=== PATIENT | male | born 1990 | race African-American/Black ===

== ENCOUNTER 2018-06-14 20:44 | Inpatient (IN) ==
--- NOTE | 2018-06-14 21:15 | ED ---
HPI General Chief Complaint: Psychiatric Symptoms Stated Complaint: Psych Eval/ OBPD Time Seen by Provider: 06/14/18 21:10 Source: patient and police Mode of arrival: ambulatory Limitations: no limitations History of Present Illness HPI Narrative: This is a 28-year-old black male who presents emergency department under Em act by PD. Patient states that he is suffered from depression for quite some time. He has never sought medical attention. Today he had placed a belt around his neck in a suicide attempt. He states that he attempted multiple times to asphyxiate himself. His last attempt he stated that he either passed out or fell asleep and when he woke up the belt was still around his neck. His mother who which she lives with called police. The patient states that when he is not active he becomes down and depressed. He recently moved back to the area in March. He has a child with his baby antonio but they are . He has a girlfriend currently. He does not smoke. Patient does drink alcohol on occasion. He does smoke marijuana on occasion. He denies any acute medical complaints. He denies any neck pain. No numbness, tingling or weakness. No visual changes or headache. No nausea or vomiting. He denies any ingestions. No homicidal ideation. Related Data Home Medications Medication Instructions Recorded Confirmed No Known Home Medications 06/14/18 06/14/18 Allergies Allergy/AdvReac Type Severity Reaction Status Date / Time No Allergy Information Allergy Unverified 06/14/18 21:11 Available Review of Systems ROS: all other systems reviewed are negative PMFSH History History Provided By: Patient Social History Social History Recent Travel in [facility] within the Last 8 Weeks: Yes Recent Out of Country Travel within the Last 8 Weeks: No Exam Narrative Exam Narrative: GENERAL: Well-nourished, well-developed patient. SKIN: Warm and dry. HEAD: Normocephalic and atraumatic. EYES: No scleral icterus. No injection or drainage. ENT: No nasal drainage noted. Mucous membranes pink. Airway patent. NECK: Supple, trachea midline. Moves head freely without obvious discomfort. I see no ligature jenkins. CARDIOVASCULAR: Regular rate and rhythm without murmurs, gallops, or rubs. RESPIRATORY: Breath sounds equal bilaterally. No accessory muscle use. GASTROINTESTINAL: Abdomen soft, non-tender, nondistended. EXTREMITIES: No cyanosis or edema. BACK: Nontender without obvious deformity. No CVA tenderness. NEURO: Patient is alert and oriented. no sensorimotor deficits. Nonfocal. Normal speech. PSYCH: No delusions. No auditory or visual hallucinations. Course Initial Documented Vital Signs Temperature 99 F 06/14/18 21:05 Pulse Rate 113 H 06/14/18 21:05 Respiratory Rate 14 06/14/18 21:05 Blood Pressure 128/78 06/14/18 21:05 Pulse Oximetry 100 06/14/18 21:05 Last Documented Vital Signs Temperature 99 F 06/14/18 21:05 Pulse Rate 113 H 06/14/18 21:05 Respiratory Rate 14 06/14/18 21:05 Blood Pressure 128/78 06/14/18 21:05 Pulse Oximetry 100 06/14/18 21:05 Medical Decision Making MDM Narrative Medical decision making narrative: We will perform routine laboratory testing for medical clearance Medical Screen Exam Complete: Yes Emergency Medical Condition: Yes Differential Diagnosis Differential Diagnosis: MDM: High Differential diagnoses: Schizophrenia, schizoaffective disorder, bipolar, anxiety, depression, adjustment reaction, mood disorder NOS, ODD, depressive disorder NOS, psychosis NOS, substance induced mood disorder, infection, electrolyte abnormality, malingering. Mental health screening discussed with the patient. Psychiatric screen ordered. Lab Data Result diagrams: 06/14/18 21:09 06/14/18 21:09 Lab Results 06/14/18 06/14/18 06/14/18 Range/Units 21:09 21:09 21:09 WBC 5.3 (4.0-11.0) th/mm3 RBC 4.61 (4.50-5.90) mil/mm3 Hgb 14.7 (13.0-17.0) gm/dL Hct 44.0 (39.0-51.0) % MCV 95.4 (80.0-100.0) fL MCH 31.9 (27.0-34.0) pg MCHC 33.5 (32.0-36.0) % RDW 13.0 (11.6-17.2) % Plt Count 158 (150-450) th/mm3 MPV 8.4 (7.0-11.0) fL Neut % (Auto) 70.8 H (16.0-70.0) % Lymph % (Auto) 19.6 (9.0-44.0) % [place]elope % (Auto) 6.4 (0.0-8.0) % Eos % (Auto) 2.6 (0.0-4.0) % Baso % (Auto) 0.6 (0.0-2.0) % Neut # (Auto) 3.8 (1.8-7.7) th/mm3 Lymph # (Auto) 1.0 (1.0-4.8) th/mm3 [place]elope # (Auto) 0.3 (0.0-0.9) th/mm3 Eos # (Auto) 0.1 (0.0-0.4) th/mm3 Baso # (Auto) 0.0 (0.0-0.2) th/mm3 WBC Differential . Differential Comment Auto diff final Sodium 138 (136-145) meq/L Potassium 3.4 L (3.5-5.1) meq/L Chloride 103 (98-107) meq/L Carbon Dioxide 26.4 (21.0-32.0) meq/L Anion Gap 9 (5-15) meq/L BUN 10 (7-18) mg/dL Creatinine 1.07 (0.60-1.30) mg/dL Estimated GFR Greater than 89 (>89) mL/min Random Glucose 93 (74-106) mg/dL Calcium 9.2 (8.5-10.1) mg/dL Magnesium 1.8 (1.5-2.5) mg/dL Total Bilirubin 1.0 (0.2-1.0) mg/dL AST 20 (15-37) U/L ALT 36 (12-78) U/L Alkaline Phosphatase 49 (45-117) U/L Total Protein 7.7 (6.4-8.2) g/dL Albumin 4.7 (3.4-5.0) g/dL TSH 0.825 (0.358-3.740) uIU/mL Salicylates 2.2 L (2.8-20.0) mg/dL Urine Opiates Screen (Neg) Acetaminophen Less than 2.0 L (10.0-30.0) mcg/mL Ur Barbiturates Screen (Neg) Ur Amphetamines Screen (Neg) U Benzodiazepines Scrn (Neg) Urine Cocaine Screen (Neg) U Cannabinoids Screen (Neg) Serum Alcohol Less than 3 (0-5) mg/dL 06/14/18 Range/Units 21:09 WBC (4.0-11.0) th/mm3 RBC (4.50-5.90) mil/mm3 Hgb (13.0-17.0) gm/dL Hct (39.0-51.0) % MCV (80.0-100.0) fL MCH (27.0-34.0) pg MCHC (32.0-36.0) % RDW (11.6-17.2) % Plt Count (150-450) th/mm3 MPV (7.0-11.0) fL Neut % (Auto) (16.0-70.0) % Lymph % (Auto) (9.0-44.0) % [place]elope % (Auto) (0.0-8.0) % Eos % (Auto) (0.0-4.0) % Baso % (Auto) (0.0-2.0) % Neut # (Auto) (1.8-7.7) th/mm3 Lymph # (Auto) (1.0-4.8) th/mm3 [place] # (Auto) (0.0-0.9) th/mm3 Eos # (Auto) (0.0-0.4) th/mm3 Baso # (Auto) (0.0-0.2) th/mm3 WBC Differential Differential Comment Sodium (136-145) meq/L Potassium (3.5-5.1) meq/L Chloride (98-107) meq/L Carbon Dioxide (21.0-32.0) meq/L Anion Gap (5-15) meq/L BUN (7-18) mg/dL Creatinine (0.60-1.30) mg/dL Estimated GFR (>89) mL/min Random Glucose (74-106) mg/dL Calcium (8.5-10.1) mg/dL Magnesium (1.5-2.5) mg/dL Total Bilirubin (0.2-1.0) mg/dL AST (15-37) U/L ALT (12-78) U/L Alkaline Phosphatase (45-117) U/L Total Protein (6.4-8.2) g/dL Albumin (3.4-5.0) g/dL TSH (0.358-3.740) uIU/mL Salicylates (2.8-20.0) mg/dL Urine Opiates Screen Neg (Neg) Acetaminophen (10.0-30.0) mcg/mL Ur Barbiturates Screen Neg (Neg) Ur Amphetamines Screen Neg (Neg) U Benzodiazepines Scrn Neg (Neg) Urine Cocaine Screen Neg (Neg) U Cannabinoids Screen Pos H (Neg) Serum Alcohol (0-5) mg/dL Discharge Plan Discharge Disposition Patient Disposition: 30 Still Patient Discharge Condition Condition: Stable Physicians Team ED Provider: Ap Valentin ED Midlevel Provider: Tonny Sloan Primary Care Provider: Primary Care SofíaiHanh Rxs /Orders / Referrals /Forms Prescriptions: No Action No Known Home Medications RF: 0 Status ED Status: Medically Cleared
[2018-06-14 21:57] LABS: Amphetamine Screen,Urine Neg (Neg); Barbiturate Screen,Urine Neg (Neg); Cannabinoid Screen,Urine Pos (Neg); Cocaine Screen,Urine Neg (Neg)
[2018-06-14 21:59] LABS: Baso % (Auto) 0.6 % (0.0-2.0); Eos # (Auto) 0.1 th/mm3 (0.0-0.4); Eos % (Auto) 2.6 % (0.0-4.0); Hemoglobin 14.7 gm/dL (13.0-17.0); Lymph % (Auto) 19.6 % (9.0-44.0); Mean Corpuscular HGB Conc 33.5 % (32.0-36.0); Mean Corpuscular Hemoglobin 31.9 pg (27.0-34.0); Mean Corpuscular Volume 95.4 fL (80.0-100.0); Mean Platelet Volume 8.4 fL (7.0-11.0); Mono # (Auto) 0.3 th/mm3 (0.0-0.9); Mono % (Auto) 6.4 % (0.0-8.0); Neut # (Auto) 3.8 th/mm3 (1.8-7.7); Neut % (Auto) 70.8 % (16.0-70.0); Platelet Count 158 th/mm3 (150-450); Red Blood Count 4.61 mil/mm3 (4.50-5.90); White Blood Count 5.3 th/mm3 (4.0-11.0)
[2018-06-14 22:05] LABS: Anion Gap 9 meq/L (5-15)
[2018-06-14 22:09] LABS: Opiate Screen,Urine Neg (Neg)
[2018-06-14 22:16] LABS: Alanine Aminotransferase 36 U/L (12-78); Albumin 4.7 g/dL (3.4-5.0); Alkaline Phosphatase 49 U/L (45-117); Aspartate Aminotransferase 20 U/L (15-37); Blood Urea Nitrogen 10 mg/dL (7-18); Calcium 9.2 mg/dL (8.5-10.1); Carbon Dioxide 26.4 meq/L (21.0-32.0); Chloride 103 meq/L (98-107); Glomerular Filtration Rate Greater Than 89 mL/min (>89); Glucose,Random 93 mg/dL (74-106); Magnesium 1.8 mg/dL (1.5-2.5); Potassium 3.4 meq/L (3.5-5.1); Sodium 138 meq/L (136-145); Thyroid Stimulating Hormone 0.825 uIU/mL (0.358-3.740); Total Protein 7.7 g/dL (6.4-8.2)
[2018-06-15] MEDS ORDERED: Bisacodyl 10 MG Supp RECTAL PRN (09:47)
[2018-06-15] MEDS ORDERED: Acetaminophen 325 MG Tablet PO PRN (09:47)
[2018-06-15] MEDS ORDERED: LORazepam 1 MG Tablet PO PRN (09:47)
[2018-06-15] MEDS ORDERED: Aluminum/Magnesium/Simethacone Susp 30 ML UDC PO PRN (09:47)
[2018-06-15] MEDS ORDERED: Senna/Docusate Sodium 8.6/50 MG Tablet PO PRN (09:47)
--- NOTE | 2018-06-15 10:30 | P.HPPSY ---
Provisional Diagnosis Admission Date: June 14, 2018 20:44 [place] I.: Unspecified depressive disorder, rule out bipolar disorder, rule out major depressive disorder Competence Certification of Person's Competence To Provide Express and Informed Consent I have personally examined Cristofer Vazquez JR, a person being served at [facility] on, June 15, 2018 0953. Express and informed consent means consent voluntarily given in writing, by a competent person, after sufficient explanation and disclosure of the subject matter involved to enable the person to make a knowing and willful decision without any element of force, fraud, deceit, duress, or other form of constraint or coercion. This person is 18 years of age or older, is not now known to be incompetent to consent to treatment with a guardian advocate, and does not have a health care surrogate or proxy currently making medical treatment decisions. I have found this person to be one of the following: [xxx] Competent to provide express and informed consent, as defined above, for voluntary admission to this facility and is competent to provide express and informed consent for treatment. He/she has the consistent capacity to make well reasoned, willful, and knowing decisions concerning his or her medical or mental health treatment. The person fully and consistently understands the purpose of the admission for examination/placement and is fully capable of personally exercising all rights assured [place] Incompetent to provide express and informed consent to voluntary admission, and this is incompetent to provide express and informed consent to treatment. The person must be transferred to involuntary status and a petition for a guardian advocate filed with the Circuit Court. [] Refusing to provide express and informed consent to voluntary admission but is competent to provide express and informed consent for treatment. The person must be discharged or transferred to involuntary status. Form shall be completed within 24 hours of a person's arrival at the receiving facility and filed in the clinical record of each person: 1. Admitted on a voluntary basis 2. Permitted to provide express and informed consent to his/her own treatment 3. Allowed to transfer from involuntary to voluntary status 4. Prior to permitting a person to consent to his or her own treatment after having been previously found incompetent to consent to treatment. History of Present Illness Capacity: Has capacity History of Present Illness: Patient is a 28-year-old -[place]aroese man, single, domiciled with mother, has 1 son, unemployed, with no formal past psychiatric history, no previous psychiatric diagnoses, no previous hospitalization, one previous suicide attempt in 2014 via overdose, no history of self-injurious behavior, with a substance use history for daily marijuana use, no past medical history, who was brought under [employer] act as a patient attempted suicide at via tying a belt around his neck in the context of worsening depression which patient was admitted to the inpatient psychiatry unit for further evaluation and management. Patient was found lying hospital bed noted B, cooperative, seen with nurse. Patient states that he has been having difficulty with sleep for the past couple of weeks, but also noted that he would have episodes of several days where he felt he did not need to sleep, reporting decreased appetite, with inconsistent energy concentration as well but also noticing having felt depressed for the past 2 weeks along with feeling helpless and hopeless. Patient also states having occasional episode of racing thoughts at times and recently having suicide ideation for the past few days. Patient reports having had suicidal ideation for many years but that his coping skills would usually help but recently have not been effective. He states that his stresses include overworking trying to find work, stating that his coping skills are no longer effective. He states that yesterday he had been mostly in bed and attempting to speak with family for support due to his depressed mood but confessed to his mother that he tried twice to tie a belt around his neck to end his life which mother had called EMS and patient was brought to the hospital for evaluation under [employer]ig[employer] act. Patient currently states he is feeling "better" but continues to have depressed mood well denying any suicide ideation at this time is unreliable to contract for safety. Patient denies any perceptional services, no delusional material elicited. Rest of psychiatric review of systems negative. Family psychiatric history: Mother with anxiety, no suicides in the family Past psychiatric history: No formal past psychiatric diagnoses, no previous psychiatric admissions, one previous suicide attempt 2014 via overdose, no history of self-injurious behavior, no history of abuse. Substance history: ETOH use "occasionally", once per month usually 1-2 drinks at a time, THC use daily, denies use of any other drugs. Past medical history: Denies Allergies: NKDA Social history: Single, domiciled with mother, has 1 son, unemployed, no legal history, no background, no access to firearms. Review of Systems All other systems reviewed negative except as stated in HPI PMFSH - History History Provided By: Patient - Medical History Medical History: Medical History (Last Updated 06/15/18 @ 04:48 by Katina Swanson RN) Patient denies medical problems - Surgical History Surgical History: Surgical History (Last Updated 06/15/18 @ 04:50 by Katina Swanson RN) No history of previous surgery - Tobacco History Second Hand Smoke Exposure: No Smoking Status: Never smoker - Alcohol History How Often Do You Have a Drink Containing Alcohol: 2 to 4 times a month - Substance Use History Substance History: Active Abuse - Substance Use Type Marijuana Status: Active Route Used: Inhalation Reason for Use: Get High - Travel History Recent Travel in the [place] Within the Last 8 Weeks: Yes Recent Travel Out of the Country Within the Last 8 Weeks: No - Immunization History Tetanus Immunization: >5 Years Quality Measures - Psychiatric History Psychological trauma history: denies Violence risk to others in the last 6 months: low Violence risk to self in the last 6 months: elevated due to recent suicide attempt - Substance Abuse History Drug or alcohol use in the past 12 months: see HPI - Patient Strengths Patient's strengths (minimum of 2): verbal and communicative Medications and Allergies Active Medications: Active Medications Acetaminophen (Tylenol) 650 mg PO Q4H PRN PRN Reason: Pain 1-5 or Temp >101F Al Hydrox/Mg Hydrox/Simethicone (Mag-Al Plus Susp Liq) 30 ml PO Q6H PRN PRN Reason: DYSPEPSIA Al Hydroxide/Mg Hydroxide (Milk Of Magnesia Liq) 30 ml PO Q12H PRN PRN Reason: Mild Constipation Bisacodyl (Dulcolax Supp) 10 mg RECTAL DAILY PRN PRN Reason: SEVERE CONSITIPATION Diphenhydramine HCl (Benadryl) 50 mg PO HS PRN PRN Reason: INSOMNIA Lactulose (Lactulose Liq) 30 ml PO DAILY PRN PRN Reason: SEVERE CONSITIPATION Lorazepam (Ativan) 1 mg PO Q6H PRN PRN Reason: MODERATE TO SEVERE ANXIETY Quetiapine Fumarate (Seroquel) 25 mg PO BID ARSLAN Senna/Docusate Sodium (Valentine-Colace) 1 tab PO BID PRN PRN Reason: CONSTIPATION Sennosides (Senokot) 17.2 mg PO Q12H PRN PRN Reason: Moderate Constipation Allergies Allergy/AdvReac Type Severity Reaction Status Date / Time No Allergy Information Allergy Unverified 06/14/18 21:11 Available Home Medications Medication Instructions Recorded Confirmed Type No Known Home Medications 06/14/18 06/14/18 History Results - Labs CBC & Chem 7: 06/14/18 21:09 06/14/18 21:09 Labs: Laboratory Results - last 24 hr 06/14/18 06/14/18 06/14/18 21:09 21:09 21:09 WBC 5.3 RBC 4.61 Hgb 14.7 Hct 44.0 MCV 95.4 MCH 31.9 MCHC 33.5 RDW 13.0 Plt Count 158 MPV 8.4 Neut % (Auto) 70.8 H Lymph % (Auto) 19.6 [place] % (Auto) 6.4 Eos % (Auto) 2.6 Baso % (Auto) 0.6 Neut # (Auto) 3.8 Lymph # (Auto) 1.0 [place] # (Auto) 0.3 Eos # (Auto) 0.1 Baso # (Auto) 0.0 WBC Differential . Differential Comment Auto diff final Sodium 138 Potassium 3.4 L Chloride 103 Carbon Dioxide 26.4 Anion Gap 9 BUN 10 Creatinine 1.07 Estimated GFR Greater than 89 Random Glucose 93 Calcium 9.2 Magnesium 1.8 Total Bilirubin 1.0 AST 20 ALT 36 Alkaline Phosphatase 49 Total Protein 7.7 Albumin 4.7 TSH 0.825 Salicylates 2.2 L Urine Opiates Screen Acetaminophen Less than 2.0 L Ur Barbiturates Screen Ur Amphetamines Screen U Benzodiazepines Scrn Urine Cocaine Screen U Cannabinoids Screen Serum Alcohol Less than 3 06/14/18 21:09 WBC RBC Hgb Hct MCV MCH MCHC RDW Plt Count MPV Neut % (Auto) Lymph % (Auto) [place] % (Auto) Eos % (Auto) Baso % (Auto) Neut # (Auto) Lymph # (Auto) [place] # (Auto) Eos # (Auto) Baso # (Auto) WBC Differential Differential Comment Sodium Potassium Chloride Carbon Dioxide Anion Gap BUN Creatinine Estimated GFR Random Glucose Calcium Magnesium Total Bilirubin AST ALT Alkaline Phosphatase Total Protein Albumin TSH Salicylates Urine Opiates Screen Neg Acetaminophen Ur Barbiturates Screen Neg Ur Amphetamines Screen Neg U Benzodiazepines Scrn Neg Urine Cocaine Screen Neg U Cannabinoids Screen Pos H Serum Alcohol Exam Vital signs: Vital Signs 06/14/18 21:05 06/15/18 04:29 Temperature 99 F 98.0 F Pulse Rate 113 H 70 Respiratory Rate 14 20 Blood Pressure 128/78 106/71 Pulse Oximetry 100 100 Intake & Output 06/14/18 06/15/18 06/15/18 18:59 06:59 18:59 Weight 68.039 kg Narrative: Patient not noted to be in acute distress, no gross motor abnormalities, no signs of tremor or EPS, no psychomotor agitation or retardation. - Constitutional no acute distress, cooperative Mental Status Examination Appearance: Appropriate Consciousness: Alert Orientation: x4 Motor Activity: Normal gait Speech: Unremarkable Language: Adequate Fund of Knowledge: Inadequate Attention and Concentration: Adequate Memory: Unremarkable (There is a stating that he was he was evaluated by) Mood: Sad Affect: Sad ( police and diagnosed) Thought Process & Associations: Intact ( with delusional disorder and meets criteria for involuntary delusional disorder commitment), Goal directed, Linear Thought Content: Appropriate Hallucination Type: None Delusion Type: None Suicidal Ideation: Yes Suicidal Plan: No Suicidal Intention: No Homicidal Ideation: No Homicidal Plan: No Homicidal Intention: No Insight: Fair Judgment: Impulsive Assessment and Plan - Assessment (1) Depressive disorder Code(s): F32.9 - Major depressive disorder, single episode, unspecified Status : Acute - Plan Plan: Estimated LOS: [] days Patient is a 28-year-old -[place]aroese man with no formal past psychiatric history, no previous psychiatric admissions, one previous suicide attempt 2013, daily marijuana use, no past medical history he was admitted under Em act due to recent suicide attempt via tying a belt around his neck which patient was admitted for further psychiatric stabilization and for safety. Patient agrees to voluntary admission. We will start patient on quetiapine 25 mg p.o. twice daily with upper titration for mood stabilization for depression. We will continue to monitor mood and behavior. Collateral formation pending. Social work intervention for psychosocial assessment. Discharge planning in progress. Justification for Continued Inpatient Stay: At risk of further decompensation at lower level care.
[2018-06-15] MEDS: QUEtiapine 25 MG Tablet PO SCH ×2 (12:19→21:45)
[2018-06-16] MEDS: QUEtiapine 25 MG Tablet PO SCH ×2 (08:55→21:31)
[2018-06-16 11:19] LABS: Anion Gap 3 meq/L (5-15); Blood Urea Nitrogen 14 mg/dL (7-18); Calcium 9.5 mg/dL (8.5-10.1); Carbon Dioxide 31.7 meq/L (21.0-32.0); Chloride 104 meq/L (98-107); Cholesterol 231 mg/dL (120-200); Glomerular Filtration Rate Greater Than 89 mL/min (>89); Glucose,Random 98 mg/dL (74-106); Potassium 4.3 meq/L (3.5-5.1); Sodium 139 meq/L (136-145); Triglycerides 60 mg/dL (42-150)
[2018-06-16 11:26] LABS: Chol/HDL Ratio 2.64 Ratio; HDL Cholesterol 87.4 mg/dL (40.0-60.0); LDL Cholesterol,Calculated 132 mg/dL (0-99); Thyroid Stimulating Hormone 0.756 uIU/mL (0.358-3.740)
[2018-06-16 14:20] LABS: Hemoglobin A1c 5.4 % (4.3-6.0)
--- NOTE | 2018-06-16 14:46 | P.PNPSY ---
Subjective Remarks: Reviewed electronic medical record and discussed it with the nursing staff. Patient in day room waiting television. He just relocated back to [place] and is living with his mother. He states that he has been feeling sad for a long time and finally felt like medications would help. He states that current medications are working well. Sleeping and eating well. States that he was feeling overwhelmed , but feels like his head is clearer to day. Denies any SI/ HI. Review of Systems All other systems reviewed negative except as stated in HPI Mental Status Examination Appearance: Appropriate Consciousness: Alert Orientation: x4 Motor Activity: Normal gait Speech: Unremarkable Language: Adequate Fund of Knowledge: Adequate Attention and Concentration: Adequate Memory: Unremarkable (There is a stating that he was he was evaluated by) Mood: Sad Affect: Sad Thought Process & Associations: Intact ( with delusional disorder and meets criteria for involuntary delusional disorder commitment), Goal directed, Linear Thought Content: Appropriate Hallucination Type: None Delusion Type: None Suicidal Ideation: No Suicidal Plan: No Suicidal Intention: No Homicidal Ideation: No Homicidal Plan: No Homicidal Intention: No Insight: Fair Judgment: Impulsive Assessment and Plan - Assessment (1) Depressive disorder Code(s): F32.9 - Major depressive disorder, single episode, unspecified Status : Acute - Plan Plan: Estimated LOS: [] days Continue current treatment plan. Justification for Continued Inpatient Stay: Moving patient to a less restrictive environment may result in his decompensation.
[2018-06-17] MEDS: QUEtiapine 25 MG Tablet PO SCH (09:21)
--- NOTE | 2018-06-17 13:25 | P.PNPSY ---
Subjective Remarks: Patient seen and examined with nurse. Chart reviewed. Case discussed with nursing staff who reports patient was somewhat guarded in their interaction but otherwise no behavioral problem. Case discussed with counselor who will obtain collateral information. On my examination today, the patient reports that he has been feeling somewhat depressed for the last few weeks. He notes that he had a similar episode over the summer and contemplated suicide at that time although he did not make any attempt. He does report 1 previous suicide attempt by overdose in 2013. In addition to low mood, the patient reports that he has been experiencing poor appetite and has not been engaging in his usual exercise. He says that his presenting suicide attempt occurred "out of nowhere " on Sunday. He denies any ongoing suicidal ideation now and insists that he feels fine. Denies any audiovisual hallucinations. No other psychotic material elicited. The patient does report a history of periods of irritability and decreased need for sleep, possibly suggestive of bipolar illness. He denies family history of psychiatric issues. Denies any side effects from medications. No physical complaints. Hopeful for discharge soon. Vital Signs Temp Pulse Resp BP Pulse Ox 06/17/18 05:47 98.2 F 97 H 18 117/59 L 96 06/16/18 17:20 98.3 F 87 18 122/69 99 Laboratory Results - last 24 hr 06/16/18 10:06 Hemoglobin A1c 5.4 Labs reviewed. Admission labs reviewed. CBC unremarkable. CMP unremarkable. TSH within normal limits. Toxicology positive for cannabinoids. EKG read as sinus rhythm with occasional PVCs with QTc 380 ms, not prolonged. Review of Systems All other systems reviewed negative except as stated in HPI Mental Status Examination Appearance: Appropriate Consciousness: Alert Orientation: x4 Motor Activity: Normal gait, Other (No hand tremor, no dystonia, no dyskinesia noted. No other motor abnormalities noted.) Speech: Unremarkable Language: Adequate Fund of Knowledge: Adequate Attention and Concentration: Adequate Memory: Unremarkable (Grossly intact on clinical exam.) Mood: Other ("Fine") Affect: Appropriate Thought Process & Associations: Intact Thought Content: Appropriate Hallucination Type: None Delusion Type: None Suicidal Ideation: No (Unclear whether patient is reliable to contract for safety) Suicidal Plan: No Suicidal Intention: No Homicidal Ideation: No Mental Status Exam Remarks: Insight and judgment are unclear. Assessment and Plan - Assessment (1) Depressive disorder Code(s): F32.9 - Major depressive disorder, single episode, unspecified Status : Acute (2) Marijuana use Code(s): F12.90 - Cannabis use, unspecified, uncomplicated Status: Acute - Plan Plan: Continue Seroquel 25mg BID as ordered. I did suggest to patient that we titrate the dose of this medication to a level more likely to be therapeutic, but he declines, noting that he is not keen on taking medications at all and so would like to keep the dose lower. R/B/A for medications reviewed with patient , including the possible metabolic and motor side effects of antipsychotic therapy. I have discussed patient's cannabis use with patient; patient notes that he uses cannabis recreationally and obtains it from illicit channels. I have recommended abstinence from substances of abuse. Continue to monitor on the inpatient unit. Follow-up collateral information. Continue other medications and care as ordered. Justification for Continued Inpatient Stay: Monitoring for impairment in safety. Discharge Planning: Pending further observation. Request Healthcare Surrogate/Guardian Advocate?: No
[2018-06-17 17:37] VITALS: O2SAT 100
--- NOTE | 2018-06-17 19:55 | ECG ---
Date Performed: 06/16/2018 Time Performed: 11:37:32 PTAGE: 28 years EKG: Sinus rhythm WITH OCCASIONAL SUPRAVENTRICULAR PREMATURE COMPLEXES BORDERLINE ECG NO PREVIOUS TRACING DOCTOR: Kristyn Henderson Interpretating Date/Time 06/17/2018 19:53:19
[2018-06-17] MEDS ORDERED: QUEtiapine 25 MG Tablet PO SCH (21:00)
[2018-06-18 05:43] VITALS: BP 122/65; PULSE 87; RESP 16; TEMP 97.5
[2018-06-18] MEDS ORDERED: QUEtiapine 25 MG Tablet PO SCH (09:00)
--- NOTE | 2018-06-18 09:21 | P.TTN ---
- Patient Problems Problems: 1. Discharge planning 2. Medication compliance 3. Knowledge deficit 4. Lack of coping skills - Progress Toward Goals Provider Present: Dr. Arnulfo Chester Provider Input: 06/17/18: Patient and spouse relocated to [place] to move in with patient's [id number]. Patient presents with paranoid behavior, speaks of FBI involvement, patient expresses feelings of other "plotting" against patient, patient meeting criteria. Nurse(s) Present: Héctor Barrios Nurse Input: 06/17/18: Pt observed sitting in dayroom watching television, patient appetite good, cognition good, however presents with limited insight to the events which placed patient in [facility]. Patient is presently medication compliant. Psychiatric Counselors Present: EUSEBIO Gillespie Group Spec/RT/OT/CROUCH Present: Hector Andrade OT Group Spec/RT/OT/CRUOCH Input: 06/17/18: at this time patient reluctant to participate in group activities. Occupational Therapist Input: 06/17/18: patient is reluctant to participate in group activities at this time. - Discharge Plan SMA - Documentation Teaching Recipient: Patient
--- NOTE | 2018-06-18 11:22 | P.DSPSY ---
Psychiatry Discharge Summary Inpatient Psychiatric care?: Yes Advance Directives: No Mental Health Advance Directive: No Health Care Proxy: No - Admission Admission Date: June 15, 2018 09:46 - Admission Diagnosis (1) Depressive disorder Code(s): F32.9 - Major depressive disorder, single episode, unspecified Brief History: Patient is a 28-year-old -[place] man, single, domiciled with mother, has 1 son, unemployed, with no formal past psychiatric history, no previous psychiatric diagnoses, no previous hospitalization, one previous suicide attempt in 2013 via overdose, no history of self-injurious behavior, with a substance use history for daily marijuana use, no past medical history, who was brought under [facility] act as a patient attempted suicide at via tying a belt around his neck in the context of worsening depression which patient was admitted to the inpatient psychiatry unit for further evaluation and management. Patient was found lying hospital bed noted B, cooperative, seen with nurse. Patient states that he has been having difficulty with sleep for the past couple of weeks, but also noted that he would have episodes of several days where he felt he did not need to sleep, reporting decreased appetite, with inconsistent energy concentration as well but also noticing having felt depressed for the past 2 weeks along with feeling helpless and hopeless. Patient also states having occasional episode of racing thoughts at times and recently having suicide ideation for the past few days. Patient reports having had suicidal ideation for many years but that his coping skills would usually help but recently have not been effective. He states that his stresses include overworking trying to find work, stating that his coping skills are no longer effective. He states that yesterday he had been mostly in bed and attempting to speak with family for support due to his depressed mood but confessed to his mother that he tried twice to tie a belt around his neck to end his life which mother had called EMS and patient was brought to the hospital for evaluation under [facility]ology act. Patient currently states he is feeling "better" but continues to have depressed mood well denying any suicide ideation at this time is unreliable to contract for safety. Patient denies any perceptional services, no delusional material elicited. Rest of psychiatric review of systems negative. Family psychiatric history: Mother with anxiety, no suicides in the family Past psychiatric history: No formal past psychiatric diagnoses, no previous psychiatric admissions, one previous suicide attempt 2013 via overdose, no history of self-injurious behavior, no history of abuse. Substance history: ETOH use "occasionally", once per month usually 1-2 drinks at a time, THC use daily, denies use of any other drugs. Past medical history: Denies Allergies: NKDA Social history: Single, domiciled with mother, has 1 son, unemployed, no legal history, no background, no access to firearms. Tobacco Use In Past 30 Days: No How Often Do You Have a Drink Containing Alcohol: Never Hospital Course: Patient was admitted to a locked, inpatient psychiatric unit. Appropriate precautions were in place throughout patient's hospital stay. Patient was seen and examined on the unit by psychiatry and also visited by counselor. Psychotropic medications were adjusted. Patient tolerated medication changes well without side effects. There was no evidence of any suicidality or homicidality on the inpatient unit. There was no evidence of self-care deficit. Collateral information was obtained from the patient's mother. On the day of discharge: Patient seen and examined with nurse. Chart reviewed. Patient has completed a right of release, set to this afternoon. Case discussed with nursing staff. No behavioral issues noted overnight. Patient did request titration of his Seroquel yesterday in the late afternoon, for which I provided nurse with a telephone order. Case discussed in treatment team. On my examination today, the patient continues to request discharge from the inpatient psychiatric unit today. He denies any suicidal or homicidal ideation, intent or plan. Mood is "pretty good." I can elicit no severe depressive or hypomanic/manic symptoms. He denies any audiovisual hallucinations and denies any command auditory hallucinations to hurt self or others. No delusional material elicited. There is no evidence of impairment in reality construction. We discuss at length warning signs and triggers for self-harm that preceded current hospitalization. Patient is able to identify low mood, poor appetite and poor sleep as possible predisposing factors for presenting self-harm behavior, and we discuss strategies to manage each of these issues. We also discuss general safety planning, including utilizing ED for psychiatric emergencies such as onset of suicidal ideation. He denies any side effects from medications. Medication teaching provided. He has no physical complaints. With the patient's permission, I have obtained collateral information from his mother, Ms. Melissa on the day of discharge. Ms. Alexander's notes that she visited with the patient last night and found him improved. She believes that his depression is largely circumstantial to life stresses. She has no safety concerns about the patient being discharged today and is comfortable receiving him home. I have recommended that she secure the home environment including but not limited to guns, knives and medications (including medications prescribed on discharge today) out of an abundance of caution. We have also discussed mechanisms for having the patient returned to the emergency room for further psychiatric evaluation should the need arise. Ms. Melissa notes that she is a nurse with mental health experience and is well versed in how to obtain psychiatric help for patient. Weighing the acute, chronic and protective factors and based on the available evidence, I frothing machine operator that the patient does not meet criteria for involuntary psychiatric hospitalization at this time. There is no evidence of imminent risk of harm to self/others at this point, nor is there evidence of self-care deficit to substantiate involuntary psychiatric hospitalization. I did recommend to patient that he remain on the unit for further hospitalization and medication adjustment, but he declines, and I have no basis to retain him over his objection at this point. Patient will be discharged home today with psychiatric follow-up as arranged by counselor. Patient is also to follow-up with primary care. Patient to return to psychiatric emergency room for any concerning symptoms as part of a general safety plan. - Discharge Discharge Date: 06/18/18 - Discharge Diagnosis (1) Depressive disorder Diagnosis: Principal (Improved versus admission) Code(s): F32.9 - Major depressive disorder, single episode, unspecified Status : Acute (2) Marijuana use Diagnosis: Secondary (Counseled to quit) Code(s): F12.90 - Cannabis use, unspecified, uncomplicated Status: Chronic Discharge Disposition: Home - Discharge Instructions Discharge Diet: Regular Diet Activities You Can Perform: Weight Bearing As Tolerat - Discharge Time > 30 minutes Mental Status Examination Appearance: Appropriate Consciousness: Alert Orientation: x4 Motor Activity: Normal gait, Other (No abnormal motor movements noted) Speech: Unremarkable Language: Adequate Fund of Knowledge: Adequate Attention and Concentration: Adequate Memory: Unremarkable (Grossly intact on clinical exam.) Mood: Appropriate Affect: Appropriate Thought Process & Associations: Intact, Logical, Goal directed, Linear Thought Content: Appropriate Hallucination Type: None Delusion Type: None Suicidal Ideation: No Suicidal Plan: No Suicidal Intention: No Homicidal Ideation: No Homicidal Plan: No Homicidal Intention: No Mental Status Exam Remarks: Insight and judgment are perhaps fair. Discharge/Advance Care Plan - Results Vital Signs: Last Vital Signs Temp 97.5 F L 06/18/18 05:42 Pulse 87 06/18/18 05:42 Resp 16 06/18/18 05:42 BP 122/65 06/18/18 05:42 Pulse Ox 100 06/18/18 05:42 Lab Results: Laboratory Results Hemoglobin A1c 5.4 % (4.3-6.0) 06/16/18 10:06 Triglycerides 60 mg/dL (42-150) 06/16/18 10:06 Cholesterol 231 mg/dL (120-200) H 06/16/18 10:06 LDL Cholesterol, Calc 132 mg/dL (0-99) H 06/16/18 10:06 HDL Cholesterol 87.4 mg/dL (40.0-60.0) H 06/16/18 10:06 TSH 0.756 uIU/mL (0.358-3.740) 06/16/18 10:06 Summary of Procedures: None done Pending Results: None - Medications Number of antipsychotic medications at discharge: 1 - Discharge Care Plan Goals to Promote Your Health: * To prevent worsening of your condition and complications * To maintain your health at the optimal level Directions to Meet Your Goals: Take your medications as prescribed Follow your dietary instruction Follow activity as directed Keep your appointments as scheduled Take your immunizations and boosters as scheduled If your symptoms worsen call your PCP, if no PCP go to Urgent Care Center or Emergency Room For 05/02 questions related to your inpatient stay or results of tests pending at discharge, please contact Dr. Davin Cruz MD at Smoking is Dangerous to Your Health. Avoid second hand smoking
--- NOTE | 2018-06-18 14:24 | P.TTN ---
- Patient Problems Problems: 1. Discharge planning 2. Medication compliance 3. Knowledge deficit 4. Lack of coping skills - Progress Toward Goals Provider Present: Dr. Arnulfo Chester, Dr. Galo Cruz Provider Input: 06/18/18: Pt seroquel medication adjusted and pt is ready for discharge. 06/17/18: Patient and spouse relocated to [place] to move in with patient's [id number]. Patient presents with paranoid behavior, speaks of FBI involvement, patient expresses feelings of other "plotting" against patient, patient meeting criteria. Nurse(s) Present: Héctor Barrios Nurse Input: 06/18/18: Pt compliant taking meds and no behavioral issues per RN Anthony Chirinos. 06/17/18: Pt observed sitting in dayroom watching television, patient appetite good, cognition good, however presents with limited insight to the events which placed patient in [facility]. Patient is presently medication compliant. Psychiatric Counselors Present: Sharron Bucio, [facility], Other Psychiatric Therapist Input: 06/18/18: Pt was linked with [facility] for follow up. Pt' s mother will be picking up pt today for d/c. Group Spec/RT/OT/CROUCH Present: Hector Andrade, OT, WILLA Hernandez Group Spec/RT/OT/CROUCH Input: 06/17/18: at this time patient reluctant to participate in group activities. Occupational Therapist Input: 06/18/18: Pt reluctant to attend activities. : patient is reluctant to participate in group activities at this time. - Discharge Plan [facility] - Documentation Teaching Recipient: Patient
== END 2018-06-18 13:30 | disposition home or self-care (01) ==
LOC: NEPJ 20:44 → NEDA 06-15 09:46 → H260 06-15 14:27
PROVIDERS: ADMIT Psychiatry & Neurology Psychiatry; ATTEND Psychiatry & Neurology Psychiatry